=== PATIENT | female | born 1955 | race Caucasian/White ===

== ENCOUNTER 2023-10-08 12:14 | Outpatient (REF) | payer MEDICARE, SELFPAY ==
--- NOTE | ~2023-10-08 | MM_ITS ---
EXAMINATION: MM SCREENING DIGITAL BREAST TOMOSYNTHESIS, BILATERAL CLINICAL INFORMATION: Screening. Asymptomatic. COMPARISON: Mammography: This study is compared with prior exams dating back to 2017. TECHNIQUE: Digital breast tomosynthesis is performed in both the craniocaudal and mediolateral oblique views along with computer-aided detection (CAD). Synthesized 2D images are generated from the tomosynthesis. FINDINGS: There are scattered areas of fibroglandular density (ACR BI-RADS breast composition Category b). There is an area of right upper quadrant asymmetry. Some of this is nodular and may represent cysts. Additional mammographic and targeted sonographic imaging of this region is advised. There are benign calcifications in the right breast and a tissue marker. In the left breast, no are no significant masses, abnormal calcifications, or other abnormalities. Postsurgical changes are present in the left breast. MM/MM tomosynthesis screening BI IMPRESSION: Focal asymmetry in the right breast warrants additional mammographic and targeted sonographic imaging. No mammographic signs of malignancy breast. ASSESSMENT: BI-RADS BI-RADS 0 - Incomplete: Needs additional Imaging. RECOMMENDATION: 1. Additional views of the right breast. 2. Targeted ultrasound if warranted after review of the additional views. 3. Radiology department staff will contact the patient for additional imaging. Additional Imaging required This examination should not preclude the clinical evaluation of a suspicious palpable abnormality. This patient's information was entered into a reminder system with a target due date for their next mammogram. Electronically signed by: Jacki Smith MD 11/01/2023 08:01 AM EDT
== END 2023-10-08 12:15 | disposition home or self-care (01) ==
LOC: HO.MAMMO 12:14
PROVIDERS: Absent Provider Obstetrics & Gynecology Gynecologic Oncology; PCP Internal Medicine; Referring Provider Obstetrics & Gynecology; Visit Provider Internal Medicine
DX: Z12.31 Encounter for screening mammogram for malignant neoplasm of breast (principal)
CPT/HCPCS: 77063; 77067

== ENCOUNTER → 2023-10-08 12:30 | Outpatient (BNV) | payer MEDICARE, SELFPAY | PROVIDERS: Absent Provider Obstetrics & Gynecology Gynecologic Oncology; PCP Internal Medicine; Referring Provider Obstetrics & Gynecology; Visit Provider Radiology Diagnostic Radiology | DX: Z12.31 Encounter for screening mammogram for malignant neoplasm of breast (principal) | CPT/HCPCS: 77063; 77067 ==

== ENCOUNTER 2023-11-25 12:46 | Outpatient (REF) | payer MEDICARE, SELFPAY ==
--- NOTE | ~2023-11-25 | MM_ITS ---
EXAMINATION: MM DIAGNOSTIC DIGITAL BREAST TOMOSYNTHESIS, right breast. Right breast ultrasound. CLINICAL INFORMATION: Called back from screening for focal asymmetry in the upper outer right breast. COMPARISON: Mammography: Screening mammography October 10, 2023. TECHNIQUE: Digital breast tomosynthesis is performed in both the craniocaudal and mediolateral oblique views along with computer-aided detection (CAD). Synthesized 2D images are generated from the tomosynthesis. FINDINGS: There are scattered areas of fibroglandular density (ACR BI-RADS breast composition Category b). Additional imaging demonstrates circumscribed oval masses in the upper outer right breast. Marker clip in the upper outer right breast from previous needle core biopsy. There are no other significant masses, abnormal calcifications, or other abnormalities. Targeted color Doppler ultrasound scanning in the right breast upper outer quadrant demonstrates multiple simple cysts. There is a simple cyst at 9:00 7 cm from nipple measuring 16 x 14 x 13 mm. There is a simple cyst at 8:00 3 cm from nipple measuring 12 x 12 x 9 mm. At 10:00 3 cm from nipple there is a simple cyst measuring 10 x 11 x 8 mm. There are multiple additional adjacent subcentimeter simple cysts. MM/MM tomosynthesis added views R IMPRESSION: Multiple simple cysts on ultrasound correlating with the focal asymmetries on mammography. Benign. ASSESSMENT: BI-RADS BI-RADS 2 - Benign Findings RECOMMENDATION: 1 year F/U Results were discussed with the patient at time of visit. This patient's information was entered into a reminder system with a target due date for their next mammogram. Electronically signed by: Robyn Garrett DO 11/25/2023 01:53 PM EDT
== END 2023-11-25 12:47 | disposition home or self-care (01) ==
LOC: HO.MAMMO 12:46
PROVIDERS: PCP Internal Medicine; Visit Provider Internal Medicine
DX: R92.8 Other abnormal and inconclusive findings on diagnostic imaging of breast (principal)
CPT/HCPCS: 76642; 77061; 77065

== ENCOUNTER → 2023-11-25 13:00 | Outpatient (BNV) | payer MEDICARE, SELFPAY | PROVIDERS: PCP Internal Medicine; Visit Provider Internal Medicine | DX: R92.8 Other abnormal and inconclusive findings on diagnostic imaging of breast (principal) | CPT/HCPCS: 76642; 77065; G0279 ==